=== PATIENT | female | born 1935 | race Two or more races ===

== ENCOUNTER 2024-02-29 00:26 | Inpatient (IN) ==
[2024-02-29] MEDS ORDERED: ONDANSETRON 4 MG/2 ML VIAL IV PRN (02:55)
[2024-02-29] MEDS: 0.9 % SODIUM CHLORIDE 10 ML SYRINGE IV SCH (04:16)
[2024-02-29] MEDS: 0.9 % SODIUM CHLORIDE 1,000 ML IV SCH ×2 (04:17→09:38)
[2024-02-29] MEDS: DOCUSATE SODIUM 100 MG CAPSULE PO SCH (09:39)
[2024-02-29 09:47] LABS: Basophils # (Auto) 0.03 K/mcL (0.00-0.30); Basophils % (Auto) 0.5 % (0.0-2.0); Eosinophils # (Auto) 0.09 K/mcL (0.00-0.70); Eosinophils % (Auto) 1.5 % (0.0-7.0); Hematocrit 41.4 % (34.1-44.9); Hemoglobin 13.4 g/dL (11.2-15.7); Lymphocytes # (Auto) 0.52 K/mcL (1.50-4.80); Lymphocytes % (Auto) 8.4 % (15.5-49.0); Mean Cell Volume 96.7 fL (80.0-100.0); Mean Corpuscular HGB Conc 32.4 g/dL (31.0-36.0); Mean Platelet Volume 10.3 fL (8.8-12.5); Monocytes # (Auto) 0.59 K/mcL (0.10-0.90); Monocytes % (Auto) 9.6 % (1.0-12.0); Platelet Count 206 K/mcL (140-440); RBC 4.28 M/mcL (3.59-5.38); Red Cell Distribution Width 13.8 % (11.5-14.5); WBC 6.2 K/mcL (4.5-11.0)
[2024-02-29 10:06] LABS: Blood Urea Nitrogen 13 mg/dL (8-23); Calcium 8.7 mg/dL (8.6-10.4); Carbon Dioxide 24 mmol/L (22-30); Chloride 103 mmol/L (96-108); Glomerular Filtration Rate 77; Glucose 221 mg/dL (70-105); Potassium 4.2 mmol/L (3.3-5.1); Sodium 140 mmol/L (133-145)
[2024-02-29 10:10] LABS: Partial Thromboplastin Time 34.5 sec (20.0-37.0)
[2024-02-29 10:17] LABS: INR 1.2 (0.9-1.1); Prothrombin Time 15.6 sec (11.9-14.5)
[2024-02-29] MEDS: HYDROmorphone 1 MG/ML SYRINGE IV PRN (15:26)
[2024-02-29] MEDS: SENNOSIDES 1 TABLET PO SCH (20:28)
[2024-03-01 06:18] LABS: Basophils # (Auto) 0.03 K/mcL (0.00-0.30); Basophils % (Auto) 0.5 % (0.0-2.0); Eosinophils # (Auto) 0.09 K/mcL (0.00-0.70); Eosinophils % (Auto) 1.4 % (0.0-7.0); Hematocrit 40.4 % (34.1-44.9); Lymphocytes # (Auto) 0.72 K/mcL (1.50-4.80); Lymphocytes % (Auto) 11.3 % (15.5-49.0); Mean Cell Volume 98.5 fL (80.0-100.0); Mean Corpuscular HGB Conc 32.2 g/dL (31.0-36.0); Mean Platelet Volume 10.9 fL (8.8-12.5); Monocytes # (Auto) 0.85 K/mcL (0.10-0.90); Monocytes % (Auto) 13.3 % (1.0-12.0); Neutrophils % (Auto) 73.3 % (38.0-78.0); Platelet Count 176 K/mcL (140-440); Red Cell Distribution Width 13.8 % (11.5-14.5); WBC 6.4 K/mcL (4.5-11.0)
[2024-03-01 06:37] LABS: Blood Urea Nitrogen 10 mg/dL (8-23); Calcium 8.5 mg/dL (8.6-10.4); Carbon Dioxide 25 mmol/L (22-30); Chloride 105 mmol/L (96-108); Glomerular Filtration Rate 86; Glucose 126 mg/dL (70-105); Potassium 4.4 mmol/L (3.3-5.1); Sodium 140 mmol/L (133-145)
[2024-03-01] MEDS ORDERED: KETAMINE 50 MG/ML ML ONE (06:37)
[2024-03-01] MEDS ORDERED: PROPOFOL 200 MG/20 ML VIAL IV ONE (06:37)
[2024-03-01] MEDS ORDERED: DEXAMETHASONE 10 MG/ML VIAL ONE (06:38)
[2024-03-01] MEDS ORDERED: LIDOCAINE 2% PF 5 ML VIAL ONE (06:38)
[2024-03-01] MEDS ORDERED: ONDANSETRON 4 MG/2 ML VIAL ONE (06:38)
[2024-03-01] MEDS: ceFAZolin 2 GM in DEXTROSE 5% IN WATER 50 ML IV SCH ×2 (07:10→16:34)
[2024-03-01] MEDS ORDERED: MEPERIDINE 25 MG/ML VIAL IV PRN (07:41)
[2024-03-01] MEDS ORDERED: IPRATROPIUM/ALBUTEROL 3 ML AMPUL.NEB NEB PRN (07:41)
[2024-03-01] MEDS ORDERED: NALOXONE HCL 0.4 MG/ML VIAL IV PRN (07:41)
[2024-03-01] MEDS ORDERED: fentaNYL 100 MCG/2 ML VIAL IV PRN (07:41)
[2024-03-01] MEDS ORDERED: ONDANSETRON 4 MG/2 ML VIAL IV PRN (07:41)
[2024-03-01] MEDS ORDERED: LACTATED RINGERS 250 ML IV PRN (07:41)
[2024-03-01] MEDS ORDERED: diphenhydrAMINE 50 MG/ML VIAL IV PRN (07:41)
[2024-03-01] MEDS ORDERED: fentaNYL 100 MCG/2 ML VIAL ONE (07:49)
[2024-03-01] MEDS ORDERED: VERAPAMIL 5 MG/2 ML VIAL ONE (07:54)
[2024-03-01] MEDS ORDERED: BENZOCAINE/MENTHOL 1 LOZENGE PO PRN (07:58)
[2024-03-01] MEDS: BUPIVACAINE W/EPI 0.25% 50 ML VIAL IJ ONE (08:02)
[2024-03-01] MEDS: DILTIAZEM 240 MG CAP.XL.24H PO SCH (09:44)
[2024-03-01] MEDS: ACETAMINOPHEN 1,000 MG/100 ML BAG IV ONE (09:46)
[2024-03-01] MEDS: ASPIRIN 325 MG ENTERIC COATED TABLET PO SCH (11:02)
[2024-03-01] MEDS: LACTATED RINGERS 1,000 ML IV SCH (11:37)
[2024-03-01] MEDS: HYDROCODONE/APAP 7.5/325MG TABLET PO PRN (15:30)
[2024-03-01] MEDS: 0.9 % SODIUM CHLORIDE 10 ML SYRINGE IV SCH (15:48)
[2024-03-01] MEDS: ASPIRIN 81 MG TAB.CHEW PO SCH (20:22)
[2024-03-01] MEDS: ceFAZolin 1 GM VIAL ONE (23:02)
[2024-03-02] MEDS: POTASSIUM CHLORIDE 20 MEQ TABLET PO ONE (11:57)
[2024-03-02] MEDS: FUROSEMIDE 40 MG/4 ML VIAL IV ONE (11:57)
[2024-03-04 13:03] LABS: Basophils # (Auto) 0.03 K/mcL (0.00-0.30); Basophils % (Auto) 0.5 % (0.0-2.0); Eosinophils # (Auto) 0.14 K/mcL (0.00-0.70); Eosinophils % (Auto) 2.1 % (0.0-7.0); Hematocrit 38.7 % (34.1-44.9); Hemoglobin 12.6 g/dL (11.2-15.7); Lymphocytes # (Auto) 0.58 K/mcL (1.50-4.80); Lymphocytes % (Auto) 8.9 % (15.5-49.0); Mean Cell Volume 95.8 fL (80.0-100.0); Mean Corpuscular HGB Conc 32.6 g/dL (31.0-36.0); Mean Platelet Volume 10.8 fL (8.8-12.5); Monocytes # (Auto) 0.77 K/mcL (0.10-0.90); Monocytes % (Auto) 11.8 % (1.0-12.0); Neutrophils % (Auto) 76.5 % (38.0-78.0); Platelet Count 200 K/mcL (140-440); RBC 4.04 M/mcL (3.59-5.38); Red Cell Distribution Width 13.2 % (11.5-14.5); WBC 6.5 K/mcL (4.5-11.0)
[2024-03-04 13:10] LABS: Blood Urea Nitrogen 11 mg/dL (8-23); Carbon Dioxide 27 mmol/L (22-30); Chloride 99 mmol/L (96-108); Glomerular Filtration Rate 86; Glucose 250 mg/dL (70-105); Potassium 4.6 mmol/L (3.3-5.1); Sodium 137 mmol/L (133-145)
[2024-03-05] MEDS: MAGNESIUM HYDROXIDE 30 ML ORAL.SUSP PO PRN (10:17)
== END 2024-03-05 14:34 | DRG 492 ==
LOC: ED 00:26 → MEDSUR 03:47
PROVIDERS: ADMIT Internal Medicine; ATTEND Internal Medicine